=== PATIENT | female | born 1975 | race Two or more races ===

== ENCOUNTER 2017-02-02 18:59 | Emergency (ER) | payer MEDICAID ==
[~2017-02-02] VITALS: Ht 154.9 cm; Wt 90.7 kg
[2017-02-02] MEDS ORDERED: NOVOLOG100 UNITS/ SC (20:30)
[2017-02-02] MEDS ORDERED: CATAPRES0.2 M1 PO (20:30)
[2017-02-08] MEDS ORDERED: LOPRESSOR100 M1 PO (11:35)
[2017-02-08] MEDS ORDERED: LEVEMIR100 UNITS/ SC (11:36)
[2017-02-08] MEDS ORDERED: CATAPRES0.2 M1 PO (11:37)
[2017-02-08] MEDS ORDERED: NOVOLOG100 UNITS/ SC (14:53)
[2017-02-08] MEDS ORDERED: SEROQUEL25 M2 PO (16:27)
[2017-02-08] MEDS ORDERED: PROTONIX40 M2 PO (16:37)
== END 2017-02-02 20:20 ==
LOC: EDMED 18:59
DX: Z76.0 Encounter for issue of repeat prescription (principal); I10 Essential (primary) hypertension; E11.9 Type 2 diabetes mellitus without complications; F17.210 Nicotine dependence, cigarettes, uncomplicated; Z85.118 Personal history of other malignant neoplasm of bronchus and lung; Z79.4 Long term (current) use of insulin; Z79.899 Other long term (current) drug therapy